=== PATIENT | male | born 1955 | race Caucasian/White ===

== ENCOUNTER 2017-07-23 09:27 | Emergency (ER) | END 2017-07-23 10:47 | disposition home or self-care (01) | DX: S60.351A Superficial foreign body of right thumb, initial encounter (principal); F17.210 Nicotine dependence, cigarettes, uncomplicated; W45.8XXA Other foreign body or object entering through skin, initial encounter; Y92.9 Unspecified place or not applicable; Z23 Encounter for immunization ==

== ENCOUNTER → 2018-10-31 | Outpatient (CLI) | payer BC ==
[~2018-10-31] MED LIST: CEPH-443 PO
--- NOTE | 2018-10-31 13:19 | PN ---
Date/Time of Note Date/Time of Note DATE: 10/31/18 TIME: 13:16 Assessment/Plan VTE Prophylaxis Pharmacological prophylaxis: other Assessment/Plan Assessment/Plan 63-year-old male with advanced osteoarthritis of his knees. The right knee is quite symptomatic at this point. Treatment options were discussed including medications, injections, surgical treatment. The patient states that he has had knee injections with cortisone that did not help. Total knee replacement was discussed. The patient will consider his options and call when he is ready to proceed with right total knee replacement. Risks and benefits were discussed, implant materials and surgical techniques were discussed Subjective 24 Hr Interval Summary Free Text/Dictation Miller Donald is a 63-year-old male who is here for evaluation of right knee pain. Pain has been ongoing for more than 1 year. Over the past 8 months, the pain has increased to a point where it is interfering with routine activities and with work. The patient reports that he has had some physical therapy and knee injections in the past. There is no history of trauma. Patient states that his work is strenuous. No history of fever or chills. Pain is associated with swelling and stiffness Additional Comments Past history is significant for hypertension Medications amlodipine and lisinopril Allergies none Review of systems is positive for joint pain and stiffness, negative for chest pain or shortness of breath Exam/Review of Systems Exam Vitals Vital signs are stable, temperature 98.4, pulse rate 80, respiration 14 Exam Examination shows a pleasant male, he is somewhat anxious. Patient is awake alert and oriented. Both knees have varus deformities. The right knee has medial joint line tenderness. The knees have range of motion 10-105 with crepitus. There is no instability and no neurovascular deficit. X-rays of both knees show advanced osteoarthritis with loss of joint space and osteophyte formation. There appears to be a large subchondral cyst in the medial femoral condyle of the right knee. MILDRED CASAS Oct 31, 2018 13:19
--- NOTE | 2018-10-31 21:48 | RADRPT ---
PROCEDURE: XR Knees. CLINICAL INDICATION: Bilateral knee pain. TECHNIQUE: Total of six views. Frontal, oblique, and lateral views of both knees. COMPARISON: No prior study is available for comparison. FINDINGS: There is no fracture or dislocation. The soft tissues are normal. There are degenerative changes with osteophytes arising from all 3 joint compartment margins bilatera lly. There is bilateral medial joint compartment narrowing. There is a possible defect in the right m edial femoral condyle anteriorly. There is no lytic or blastic lesion. There is no radiopaque foreign body. IMPRESSION: 1. Moderate to severe degenerative changes of both knees. 2. Possible defect in the right medial femoral condyle anteriorly. Correlation with MRI advised. 3. Otherwise unremarkable images of both knees. RPTAT: QQ .Delfin Frank MD, Date Time Electronically viewed and signed by .Delfin Frank MD, on 10/31/2018 21:48 .R/
== END | disposition home or self-care (01) ==
LOC: HKI 11:26
PROVIDERS: ATTEND Orthopaedic Surgery
DX: M17.11 Unilateral primary osteoarthritis, right knee (principal); I10 Essential (primary) hypertension
CPT/HCPCS: 73562; G0463